=== PATIENT | female | born 1970 | race Caucasian/White ===

== ENCOUNTER 2023-02-21 13:36 | Emergency (ER) | payer MEDICAID, SELFPAY ==
[2023-02-21 13:41] VITALS: BP 116/73; PULSE 88; RESP 18; TEMP 37.2; O2SAT 94
--- NOTE | 2023-02-21 15:15 | DI.RAD_ITS ---
Exam(s) XR CHEST 2V PA LATERAL EXAM: XR CHEST 2V PA LATERAL CLINICAL HISTORY: productive cough, right rib pain TECHNIQUE: 2D digital imaging was performed. COMPARISON: No exams were available for comparison FINDINGS: HEART: Normal size. Aorta: Not dilated. PULMONARY VASCULATURE: Normal. LUNGS: Patchy infiltrate right middle lobe. Left lung is clear. PLEURAL SPACE: No pleural effusion or pneumothorax. BONE:Unremarkable for age. Soft tissues: Unremarkable. IMPRESSION: Right middle lobe pneumonia. DATA REPOSITORY: RADIATION DOSE DELIVERED:
--- NOTE | 2023-02-21 15:21 | W.ED.GENAD ---
HPI General Stated Complaint: RespSymp IFEOMA: 3 Date/Time Provider Initiated Documentation: 02/21/23 15:14. HPI Narrative: 52-year-old female presents with fatigue productive cough right rib discomfort over the last couple of days. Related Data Home Medications Medication Instructions Recorded Confirmed albuterol sulfate 90 mcg/actuation 2 puff inhalation Q6H PRN 02/21/23 aerosol inhaler shortness of breath or wheezing #6.7 grams amoxicillin 875 mg-potassium 1 tab PO BID 7 days #14 tabs 02/21/23 clavulanate 125 mg tablet azithromycin 250 mg tablet 250 mg PO DAILY 4 days #4 tabs 02/21/23 Previous Rx's Medication Instructions Recorded albuterol sulfate 90 mcg/actuation 2 puff inhalation Q6H PRN 02/21/23 aerosol inhaler shortness of breath or wheezing #6.7 grams amoxicillin 875 mg-potassium 1 tab PO BID 7 days #14 tabs 02/21/23 clavulanate 125 mg tablet azithromycin 250 mg tablet 250 mg PO DAILY 4 days #4 tabs 02/21/23 Allergies Allergy/AdvReac Type Severity Reaction Status Date / Time sulfamethoxazole Allergy Unverified 02/21/23 13:46 [From Bactrim] trimethoprim [From Bactrim] Allergy Unverified 02/21/23 13:46 Review of Systems Narrative: Review of Systems Constitutional: Fatigue Eyes: negative ENT: negative Cardiovascular: negative Respiratory: Cough rib pain Gastrointestinal: negative : negative Musculoskeletal: negative Skin: negative Neurologic: negative Psych: negative PFSH All Active Problems (Updated 02/21/23 @ 16:40 by Huy Camp MD) Pneumonia (Acute) Social History Smoking/Tobacco Use Status: Current every day Tobacco Type: cigarettes Smoking risk assessment performed?: Yes Alcohol Intake: current Alcohol Intake frequency: holidays/special occasions only Substance use type: marijuana Do you feel safe at home: Yes Do you feel safe in your relationship?: Yes Exam Narrative Exam Narrative: Physical Examination General: alert, awake, cooperative, resting comfortably, no acute distress HEENT: normocephalic, atraumatic; PERRL, EOM intact, conjunctiva normal; no nasal discharge; moist mucous membranes, oral and pharyngeal mucosa normal, tolerating secretions Neck: supple, trachea midline; full ROM Chest: normal to inspection Respiratory: normal respiratory effort, speaking in full sentences, mild expiratory wheeze posterior right lung field as well as posterior left lung field Cardiac: regular rate, regular rhythm, S1S2 intact, no murmurs rubs or gallops GI: abdomen soft, non-tender, non-distended; no palpable mass or hepatosplenomegaly Skin: no lesions, rashes or trauma appreciated Neuro: AAOx3, normal speech, moving all extremities Course Vital Signs Vital signs: Vital Signs Temperature 37.2 C 02/21/23 13:41 Pulse 88 02/21/23 13:41 Respiratory Rate 18 02/21/23 13:41 Blood Pressure 116/73 02/21/23 13:41 Pulse Oximetry 94 02/21/23 13:41 Temperature 37.2 C 02/21/23 13:41 Temperature Source Skin 02/21/23 13:41 Pulse 88 02/21/23 13:41 Respiratory Rate 18 02/21/23 13:41 Respiratory Effort Short of Breath 02/21/23 15:18 Blood Pressure 116/73 02/21/23 13:41 Blood Pressure Position Sitting 02/21/23 13:41 Pulse Oximetry 94 02/21/23 13:41 Oxygen Delivery Method Room Air 02/21/23 13:41 Oxygen Flow Rate 0 02/21/23 13:41 Medical Decision Making 52-year-old female presents with fatigue cough productive, right rib discomfort, mild expiratory wheeze bilateral posterior lung hardy, afebrile nontoxic moving good air speaking full sentences. Consider viral respiratory illness versus early bacterial pneumonia. Low suspicion for PE, muscles consider pneumothorax versus pleural effusion. Low suspicion for ACS or aortic pathology. Screening chest x-ray, COVID flu swab, nebulized albuterol and dexamethasone p.o. Close reassessment of symptoms likely home with close follow-up pending results. 16: 39 evidence of right middle lobe pneumonia. Patient remains normoxic normotensive nontachycardic afebrile nontoxic. Will treat with Augmentin and azithromycin. Home care instructions return precautions given Quality:SDOH Health Related Social Needs: Health related social needs risk of homeless Discharge Plan Disposition Patient Disposition: Home Condition: Stable Discharge Details Clinical Impression: Pneumonia Primary Care Provider: Unknown,Unknown ED Provider: Huy Camp Home Meds and New Rx's Prescriptions: New amoxicillin-pot clavulanate 875-125 mg tablet 1 tab PO BID 7 Days Qty: 14 0RF azithromycin 250 mg tablet 250 mg PO DAILY 4 Days Qty: 4 0RF Rx Instructions: start on day 2 of therapy albuterol sulfate 90 mcg/actuation HFA aerosol inhaler 2 puff inhalation Q6H PRN (Reason: shortness of breath or wheezing) Qty: 6.7 0RF Discharge Instructions Instructions: Pneumonia (ED)
[2023-02-21] MEDS: Dexamethasone 10 MG/ML VIAL PO (15:24)
[2023-02-21] MEDS: Albuterol 2.5 MG/3 ML INH SOLN VIAL UPD (15:24)
[2023-02-21 16:21] VITALS: O2SAT 96
[2023-02-21] MEDS: Azithromycin 250 MG TAB 500 MG PO (16:21)
[2023-02-21] MEDS: Amoxicillin 875/Clav. 125 TAB PO (16:21)
[2023-02-21 16:22] VITALS: BP 115/77; PULSE 74; PULSE 75; RESP 18; O2SAT 92; O2SAT 93
[2023-02-21 16:30] VITALS: BP 128/70; PULSE 81
[2023-02-21 16:45] VITALS: BP 112/69; PULSE 73
== END 2023-02-21 16:53 | disposition home or self-care (01) ==
PROVIDERS: Emergency Provider Emergency Medicine
DX: J18.9 Pneumonia, unspecified organism (principal); F17.210 Nicotine dependence, cigarettes, uncomplicated
CPT/HCPCS: 87426; 94640; 96374; 99283; 99284; 71046; J1100; J7613